=== PATIENT | male | born 1980 | race Caucasian/White ===

== ENCOUNTER 2023-05-09 10:15 | Emergency (ER) | payer BC, OTHER ==
[~2023-05-09] VITALS: Ht 172.7 cm; Wt 95.4 kg
[2023-05-09 10:25] VITALS: BP 155/89; PULSE 91; RESP 15; TEMP 98; O2SAT 96
[2023-05-09] MEDS ORDERED: CYCL-837 PO (11:57)
[2023-05-09] MEDS ORDERED: IBUP-1455 PO (11:57)
== END 2023-05-09 12:06 | disposition home or self-care (01) ==
LOC: ER 10:15
DX: S16.1XXA Strain of muscle, fascia and tendon at neck level, initial encounter (principal); S39.011A Strain of muscle, fascia and tendon of abdomen, initial encounter; V49.9XXA Car occupant (driver) (passenger) injured in unspecified traffic accident, initial encounter; Y93.89 Activity, other specified; Y92.89 Other specified places as the place of occurrence of the external cause; Y99.8 Other external cause status